=== PATIENT | female | born 1935 | race Caucasian/White ===

== ENCOUNTER 2022-10-12 05:52 | Day surgery (SDC) | payer OTHER, MEDICAID ==
[~2022-10-12] VITALS: Ht 174 cm; Wt 122.3 kg
[~2022-10-12 05:52] MED LIST: KETOROLAC TROMETHAMINE 0.5% 5 ML OPHTHALMIC SOLUTION ONE; MOXIFLOXACIN HCL 0.5% 3 ML OPHTHALMIC SOLUTION ONE; PHENYLEPHRINE HCL 2.5% 2 ML OPHTHALMIC SOLUTION ONE; RINGERS SOLUTION,LACTATED 500 ML IV ONE; TROPICAMIDE 1% 2 ML OPHTHALMIC SOLUTION ONE
[2022-10-12] MEDS: MOXIFLOXACIN HCL 0.5% 3 ML OPHTHALMIC SOLUTION OD SCH ×3 (06:33→06:47)
[2022-10-12] MEDS: TROPICAMIDE 1% 2 ML OPHTHALMIC SOLUTION OD SCH ×3 (06:33→06:48)
[2022-10-12] MEDS: PHENYLEPHRINE HCL 2.5% 2 ML OPHTHALMIC SOLUTION OD SCH ×3 (06:33→06:47)
[2022-10-12] MEDS: KETOROLAC TROMETHAMINE 0.5% 5 ML OPHTHALMIC SOLUTION OD SCH ×3 (06:33→06:48)
[2022-10-12] MEDS ORDERED: LIDOCAINE/PF 1% 2 ML VIAL ONE (06:39)
[2022-10-12] MEDS ORDERED: EPINEPHrine 1:1,000 [1 MG/ML] VIAL ONE (06:39)
[2022-10-12] MEDS ORDERED: TETRACAINE HCL/PF 0.5% 4 ML OPHTHALMIC SOLUTION ONE (06:39)
[2022-10-12] MEDS ORDERED: POVIDONE-IODINE 5% 30 ML OPHTHALMIC SOLUTION ONE (06:40)
[2022-10-12] MEDS ORDERED: POTA-206 PO (06:56)
[2022-10-12] MEDS ORDERED: FURO80 PO (06:56)
[2022-10-12] MEDS ORDERED: METO5TAB7 PO (06:56)
[2022-10-12] MEDS ORDERED: HYDR10TA31 PO (06:56)
[2022-10-12] MEDS ORDERED: MAGN250T29 PO (06:56)
[2022-10-12] MEDS ORDERED: APIX5TAB PO (06:56)
[2022-10-12] MEDS ORDERED: RINGERS SOLUTION,LACTATED 500 ML IV ONE (07:30)
[2022-10-12] MEDS ORDERED: MIDAZOLAM HCL 2 MG/2 ML VIAL IVP ONE (12:00)
[2022-10-12] MEDS ORDERED: FentaNYL CITRATE PF 100 MCG/2 ML VIAL IVP ONE (12:00)
== END 2022-10-12 09:00 | disposition home or self-care (01) ==
LOC: SURGERY 05:52
PROVIDERS: ATTEND Ophthalmology
DX: H25.11 Age-related nuclear cataract, right eye (principal); I10 Essential (primary) hypertension; J44.9 Chronic obstructive pulmonary disease, unspecified; Z79.899 Other long term (current) drug therapy; Z72.89 Other problems related to lifestyle; Z98.890 Other specified postprocedural states; I48.91 Unspecified atrial fibrillation; E66.01 Morbid (severe) obesity due to excess calories
CPT/HCPCS: 66984; 93005; J0171; J3010; J3490; J2250; Q9967; J7120; V2632

== ENCOUNTER → 2022-12-14 | Day surgery (SDC) | payer OTHER, MEDICAID ==
[~2022-12-14] VITALS: Ht 174 cm; Wt 122.2 kg
[~2022-12-14] MED LIST changes: +APIX5TAB PO; +BALANCED SALT 15 ML OPHTHALMIC IRRIG.SOLN ONE; +EPINEPHrine 1:1,000 [1 MG/ML] VIAL ONE; +FURO80 PO; +FentaNYL CITRATE PF 100 MCG/2 ML VIAL IVP ONE; +HYALURONATE SOD 8.5MG/0.85ML 10 MG/ML SYRINGE IO ONE; +HYDR10TA31 PO; +LIDOCAINE/PF 1% 2 ML VIAL ONE; +MAGN250T29 PO; +METO5TAB7 PO; +MIDAZOLAM HCL 2 MG/2 ML VIAL IVP ONE; +POTA-206 PO; +POVIDONE-IODINE 5% 30 ML OPHTHALMIC SOLUTION ONE; +TETRACAINE HCL/PF 0.5% 4 ML OPHTHALMIC SOLUTION ONE
[2022-12-14] MEDS: TROPICAMIDE 1% 2 ML OPHTHALMIC SOLUTION OS SCH ×3 (11:02→11:18)
[2022-12-14] MEDS: MOXIFLOXACIN HCL 0.5% 3 ML OPHTHALMIC SOLUTION OS SCH ×3 (11:02→11:17)
[2022-12-14] MEDS: KETOROLAC TROMETHAMINE 0.5% 5 ML OPHTHALMIC SOLUTION OS SCH ×3 (11:02→11:17)
[2022-12-14] MEDS: PHENYLEPHRINE HCL 2.5% 2 ML OPHTHALMIC SOLUTION OS SCH ×3 (11:03→11:18)
== END | disposition home or self-care (01) ==
LOC: SURGERY 09:42
PROVIDERS: ATTEND Ophthalmology
DX: H25.12 Age-related nuclear cataract, left eye (principal); I10 Essential (primary) hypertension; I48.91 Unspecified atrial fibrillation; Z90.49 Acquired absence of other specified parts of digestive tract; Z98.818 Other dental procedure status; Z98.890 Other specified postprocedural states; Z79.899 Other long term (current) drug therapy
CPT/HCPCS: 66984; J0171; J3010; J3490; J2250; Q9967; V2632